=== PATIENT | female | born 1935 | race Caucasian/White ===

== ENCOUNTER 2023-01-09 07:38 | Observation (INO) | payer MEDICARE, BC ==
[~2023-01-09] VITALS: Ht 167.6 cm; Wt 90.7 kg
[2023-01-09] MEDS ORDERED: methylPREDNISolone 125MG 2ML VIAL IV ONE (08:00)
[2023-01-09 08:02] LABS: ABG BASE EXCESS 0.7 (-2.0-2.0); ABG HCO3 26.5 MMOL/L (22.0-26.0); ABG O2 SATURATION 99.3 % (95.0-99.0); ABG PARTIAL PRESSURE CO2 46.8 mmHg (35.0-45.0); ABG PARTIAL PRESSURE O2 201.5 mmHg (75.0-100.0); ABG STANDARD HCO3 25.2 MMOL/L. (22.0-26.0); ABG TOTAL CO2 27.9 MMOL/L (23.0-31.0); ABG pH (ARTERIAL) 7.371 UNITS (7.350-7.450)
[2023-01-09] MEDS ORDERED: CETACAINE SPRAY 5GM TOP ONE (08:05)
[2023-01-09] MEDS ORDERED: RACEPINEPHrine 2.25% UD INHAL INH ONE (08:05)
[2023-01-09] MEDS ORDERED: OXYMETAZOLINE 0.05% NASAL SPRAY (AFRIN) ONE (08:05)
[2023-01-09] MEDS ORDERED: ELIQ5TAB PO (08:27)
[2023-01-09 08:28] LABS: BASO % 0.2 % (0.0-1.0); EOS % 0.6 % (0.0-3.0); HEMATOCRIT 41.6 % (36.0-47.0); HEMOGLOBIN 13.4 g/dl (12.0-15.5); LYMPH # 1.2 10^3/uL (1.5-5.0); MEAN CORPUSCULAR HEMOGLOBIN 30.7 pg (27.0-33.0); MEAN CORPUSCULAR HGB CONC 32.2 g/dl (32.0-36.5); MEAN CORPUSCULAR VOLUME 95.4 fl (80.0-96.0); MONO # 0.5 10^3/uL (0.0-0.8); MONO % 10.7 % (2.0-8.0); NEUTROPHILS # 3.3 10^3/uL (1.5-8.5); NEUTROPHILS % 65.1 % (36.0-66.0); PLATELET COUNT, AUTOMATED 162 10^3/uL (150-450); RED BLOOD COUNT 4.36 10^6/uL (4.00-5.40)
[2023-01-09] MEDS ORDERED: cefTRIAXone SOD 2 GM in D5W MINI-BAG PLUS 50 ML IV ONE (08:40)
[2023-01-09 08:42] LABS: INR 1.13; PROTHROMBIN TIME 14.2 SECONDS (12.5-14.5)
[2023-01-09 08:53] LABS: CK-MB VALUE MASS < 1.0 NG/ML (<3.6)
[2023-01-09 08:55] LABS: ALBUMIN 3.1 G/DL (3.2-5.2); ALKALINE PHOSPHATASE 58 U/L (46-116); ALT/SGPT 29 U/L (7.0-40); AST/SGOT 37 U/L (<34); BILIRUBIN,DIRECT 0.2 MG/DL (<0.4); BILIRUBIN,TOTAL 0.4 MG/DL (0.3-1.2); BLOOD UREA NITROGEN 18 MG/DL (9-23); CALCIUM LEVEL 7.5 MG/DL (8.3-10.6); CARBON DIOXIDE LEVEL 27 MMOL/L (20-31); CHLORIDE LEVEL 107 MMOL/L (98-107); CPK CREATINE PHOSPHOKINASE 58 U/L (34-145); CREATININE FOR GFR 0.66 MG/DL (0.55-1.30); GLOMERULAR FILTRATION RATE > 60.0 (>32); GLUCOSE, FASTING 126 MG/DL (74-106); MB/CK RELATIVE INDEX 1.72 (< OR =4); POTASSIUM SERUM 3.9 MMOL/L (3.5-5.1); SODIUM LEVEL 141 MMOL/L (136-145); TOTAL PROTEIN 5.6 G/DL (5.7-8.2)
[2023-01-09 08:56] LABS: THYROXINE (T4) 7.2 UG/DL (4.5-10.9)
[2023-01-09 08:57] LABS: THYROID STIMULATING HORMONE 3.575 uIU/ML (0.55-4.78)
[2023-01-09 09:00] LABS: PROCALCITONIN <0.04 ng/ml
[2023-01-09] MEDS ORDERED: MED REC IN PROGRESS XX SCH (12:45)
[2023-01-09] MEDS ORDERED: MED REC CURRENTLY UNOBTAINABLE XX SCH (13:10)
[2023-01-09] MEDS ORDERED: MOM 30ML SUSPENSION UDC PO PRN (13:45)
[2023-01-09] MEDS ORDERED: ACETAMINOPHEN TAB 650MG DOSE (2X325MG) PO PRN (13:45)
[2023-01-09] MEDS ORDERED: MAALOX 30 ML SUSP *UDC PO PRN (13:45)
[2023-01-09] MEDS ORDERED: CHLORASEPTIC SPRAY MT PRN (13:55)
[2023-01-09] MEDS ORDERED: VITAD400CA PO (15:00)
[2023-01-09] MEDS ORDERED: ATOR40TA75 PO (15:00)
[2023-01-09] MEDS ORDERED: SPIR-10 PO (15:00)
[2023-01-09] MEDS ORDERED: FURO20TA2 PO (15:00)
[2023-01-09] MEDS ORDERED: METO50TA7 PO (15:00)
[2023-01-09] MEDS ORDERED: IRBE150T7 PO (15:00)
[2023-01-09] MEDS ORDERED: RA M500C PO (15:00)
[2023-01-09 17:20] VITALS: BP 143/75; TEMP 98.9; O2SAT 94
[2023-01-09] MEDS ORDERED: HOME MED LIST COMPLETE! XX SCH (19:10)
[2023-01-09] MEDS ORDERED: METO1TAB87 PO (19:10)
[2023-01-09 20:00] VITALS: BP 117/65; TEMP 98.6; O2SAT 93
[2023-01-09] MEDS: dexAMETHasone 20MG/5ML VIAL IV SCH (20:04)
[2023-01-09] MEDS: METOPROLOL TART 25 MG TABLET PO SCH (20:52)
[2023-01-09] MEDS: APIXABAN 5 MG TAB (ELIQUIS) PO SCH (20:52)
[2023-01-09] MEDS ORDERED: ATORVASTATIN 20 MG TAB PO SCH (21:00)
[2023-01-10] VITALS: BP 117/62; TEMP 98; O2SAT 94
[2023-01-10 04:00] VITALS: BP 116/68; TEMP 98; O2SAT 95
[2023-01-10 08:00] VITALS: BP 116/61; TEMP 97.8; O2SAT 96
[2023-01-10] MEDS: dexAMETHasone 20MG/5ML VIAL IV SCH (08:00)
[2023-01-10 08:28] LABS: BLOOD UREA NITROGEN 25 MG/DL (9-23); CALCIUM LEVEL 8.9 MG/DL (8.3-10.6); CARBON DIOXIDE LEVEL 26 MMOL/L (20-31); CHLORIDE LEVEL 105 MMOL/L (98-107); CREATININE FOR GFR 0.59 MG/DL (0.55-1.30); GLOMERULAR FILTRATION RATE > 60.0 (>32); GLUCOSE, FASTING 149 MG/DL (74-106); POTASSIUM SERUM 4.6 MMOL/L (3.5-5.1); SODIUM LEVEL 138 MMOL/L (136-145)
[2023-01-10] MEDS: METOPROLOL TART 25 MG TABLET PO SCH (08:30)
[2023-01-10] MEDS: APIXABAN 5 MG TAB (ELIQUIS) PO SCH (08:30)
[2023-01-10] MEDS ORDERED: AUGMENTIN 875 MG TAB PO SCH (09:00)
[2023-01-10] MEDS ORDERED: SPIRONOLACTONE 25 MG TAB PO SCH (09:00)
[2023-01-10] MEDS ORDERED: VITAMIN D (CHOLECALCIFEROL) 400 INTERNATIONAL UNITS TAB PO SCH (09:00)
[2023-01-10] MEDS ORDERED: IRBESARTAN 150MG TAB PO SCH (09:00)
[2023-01-10] MEDS ORDERED: FUROSEMIDE 20 MG TAB PO SCH (09:00)
[2023-01-10] MEDS ORDERED: AMOX875T2 PO (10:41)
== END 2023-01-10 12:36 | disposition home or self-care (01) ==
LOC: EDBD 07:38 → M ED 07:38 → M ED INP 13:43 → M ICU 17:07
PROVIDERS: ADMIT Student in an Organized Health Care Education/Training Program; ATTEND Student in an Organized Health Care Education/Training Program
DX: J05.0 Acute obstructive laryngitis [croup] (principal); J02.0 Streptococcal pharyngitis; B34.8 Other viral infections of unspecified site; I48.92 Unspecified atrial flutter; Z79.01 Long term (current) use of anticoagulants; Z79.899 Other long term (current) drug therapy
CPT/HCPCS: 36415; 36600; 71045; 80048; 80076; 82550; 82553; 82803; 83605; 83880; 84145; 84436; 84443; 84484; 85025; 85610; 85730; 87040; 87070; 87077; 87205; 87486; 87581; 87633; 87798; 87880; 93005; 93041; 94640; 94760; 96365; 96375; 99285; G0378; J0696; J1100; J2930